=== PATIENT | male | born 1950 | race Caucasian/White ===

== ENCOUNTER 2018-02-11 04:10 | Inpatient (IN) | payer BC, MEDICARE ==
[2018-02-10 15:47] LABS: BASOPHILS # (AUTO) 0.03 x10^3/uL (0-0.1); BASOPHILS % (AUTO) 0 % (0-1); EOSINOPHILS # (AUTO) 0.05 x10^3/uL (0-0.4); EOSINOPHILS % (AUTO) 1 % (1-7); LYMPHOCYTES # (AUTO) 1.53 x10^3/uL (1-3.4); LYMPHOCYTES % (AUTO) 22 % (22-44); MD NO; MEAN CORPUSCULAR HGB CONC 34.2 g/dL (33.2-36.2); MEAN CORPUSCULAR VOLUME 96.6 fL (81-97); MEAN PLATELET VOLUME 8.5 fL (7.4-10.4); MONOCYTES # (AUTO) 0.47 x10^3/uL (0.2-0.8); MONOCYTES % (AUTO) 7 % (2-9); NEUTROPHILS # (AUTO) 4.93 x10^3/uL (1.8-6.8); NEUTROPHILS % (AUTO) 70 % (42-75); PLATELET COUNT 204 x10^3/uL (130-400); RED BLOOD COUNT 4.81 x10^6/uL (4.38-5.82); RED CELL DISTRIBUTION WIDTH 13.5 % (9.4-14.8)
[2018-02-10 15:55] LABS: ALBUMIN 3.8 g/dL (3.4-5.0); ANION GAP 8 mmol/L (5-15); CALCIUM 8.6 mg/dL (8.5-10.1); CHLORIDE 104 mmol/L (98-107)
[2018-02-10 15:59] LABS: ALANINE AMINOTRANSFERASE 34 U/L (12-78); ALKALINE PHOSPHATASE 76 U/L (45-117); BILIRUBIN,TOTAL 0.8 mg/dL (0.2-1.0); CREATININE 1.04 mg/dL (0.7-1.3); TOTAL PROTEIN 7.8 g/dL (6.4-8.2)
[2018-02-10 16:00] LABS: HEMOGLOBIN A1C 6.3 % (4.2-6.3)
[2018-02-10 16:06] LABS: INTERNATIONAL NORMALIZED RATIO 1.08 (0.93-1.1); PROTHROMBIN TIME 11.4 Seconds (9.6-11.5)
[2018-02-10 16:24] LABS: MICROSCOPIC AUTO
[2018-02-10 16:31] LABS: CULTURE INDICATED? YES
[~2018-02-11] VITALS: Ht 170.2 cm; Wt 85.1 kg
[~2018-02-11 04:10] MED LIST: ACET-711 PO; ASPI81TA45 PO; ATOR10TA9 PO; CYCL-259 PO; METO25TA35 PO; [UNRECOGNIZED DRUG - CODE] TP
[2018-02-11] MEDS ORDERED: METOPROLOL TARTRATE 25 MG TABLET PO ONE (05:00)
[2018-02-11] MEDS ORDERED: INSULIN LISPRO 100 UNITS/ML, PEN SQ-INSULIN SCH ×2 (05:00→16:00)
[2018-02-11] MEDS ORDERED: CHLORHEXIDINE 15 ML UDC MM SCH (05:00)
[2018-02-11] MEDS ORDERED: DO NOT GIVE MC SCH (05:00)
[2018-02-11] MEDS ORDERED: DO NOT GIVE XX SCH (05:00)
[2018-02-11] MEDS: MUPIROCIN OINT 2%, 22GM TP SCH ×2 (05:01→21:00)
[2018-02-11] MEDS: SODIUM CHLORIDE FLUSH 10ML SYR IVF SCH ×3 (05:02→21:24)
[2018-02-11] MEDS ORDERED: PAPAVERINE 30 MG/ML, 2ML ONE (07:03)
[2018-02-11] MEDS ORDERED: HEPARIN 1,000 UNITS/ML, 10ML ONE (07:03)
[2018-02-11] MEDS ORDERED: PHENYLEPHRINE 10 MG in SODIUM CHLORIDE 0.9% 249 ML IV PRN ×2 (07:30→11:46)
[2018-02-11] MEDS ORDERED: DEXMEDETOMIDINE 200 MCG in SODIUM CHLORIDE 0.9% 48 ML IV SCH (07:30)
[2018-02-11] MEDS ORDERED: EPINEPHRINE 2 MG in SODIUM CHLORIDE 0.9% 248 ML IV SCH (07:30)
[2018-02-11] MEDS ORDERED: ALBUMIN HUMAN 5% 500 ML IV PRN (07:30)
[2018-02-11] MEDS ORDERED: POTASSIUM CHLORIDE 80 MEQ, SODIUM BICARBONATE 8.4% 10 MEQ, MAGNESIUM SULFATE 0.5 GM, LI... IV PRN (07:30)
[2018-02-11] MEDS ORDERED: CEFUROXIME 1.5 GM in SODIUM CHLORIDE 0.9% 50 ML IVPB PRN (07:30)
[2018-02-11] MEDS ORDERED: REGULAR INSULIN 62.5 UNITS in SODIUM CHLORIDE 0.9% 249.375 ML IV PRN ×2 (07:30→11:46)
[2018-02-11] MEDS ORDERED: MANNITOL PMX 20% 500 ML IVPB PRN (07:30)
[2018-02-11] MEDS ORDERED: VANCOMYCIN 1,300 MG in SODIUM CHLORIDE 0.9% 250 ML IV PRN (07:30)
[2018-02-11] MEDS ORDERED: MIDAZOLAM 10MG/2 ML ONE (07:43)
[2018-02-11] MEDS ORDERED: FENTANYL PF 250 MCG/5ML ONE ×4 (07:43→07:44)
[2018-02-11] MEDS ORDERED: CALCIUM CHLORIDE 10%, 10ML SYR ONE (07:46)
[2018-02-11] MEDS ORDERED: PROPOFOL 10 MG/ML, 20ML ONE (07:47)
[2018-02-11] MEDS ORDERED: AMINOCAPROIC ACID 250 MG/ML, 20ML ONE (07:47)
[2018-02-11] MEDS ORDERED: ROCURONIUM 10MG/ML,5ML ONE ×2 (08:59)
[2018-02-11] MEDS ORDERED: PROTAMINE SULFATE 10 MG/ML, 25ML ONE ×2 (08:59)
[2018-02-11] MEDS: DOCUSATE 100 MG CAPSULE PO SCH ×2 (09:00→21:25)
[2018-02-11] MEDS ORDERED: KETAMINE 10 MG/ML, 20ML ONE (09:00)
[2018-02-11] MEDS ORDERED: niCARDipine 2.5 MG/ML, 10ML ONE (09:02)
[2018-02-11] MEDS ORDERED: LIDOCAINE 2% 100MG/5ML SYRINGE ONE ×2 (11:37→11:43)
[2018-02-11] MEDS ORDERED: methylPREDNISolone SOD SUCC 125 MG/2 ML ONE (11:37)
[2018-02-11] MEDS ORDERED: ALBUMIN HUMAN 25% 50 ML ONE (11:38)
[2018-02-11] MEDS ORDERED: HEPARIN 1,000 UNITS/ML, 30ML ONE (11:38)
[2018-02-11] MEDS ORDERED: VASOPRESSIN 50 UNIT in SODIUM CHLORIDE 0.9% 247.5 ML IV PRN (11:46)
[2018-02-11] MEDS ORDERED: DOBUTAMINE 250 MG in SODIUM CHLORIDE 0.9% 230 ML IV PRN (11:46)
[2018-02-11] MEDS ORDERED: SODIUM CHLORIDE 0.9% 1,000 ML IV PRN (11:46)
[2018-02-11] MEDS ORDERED: DEXMEDETOMIDINE 200 MCG in SODIUM CHLORIDE 0.9% 48 ML IV PRN (11:46)
[2018-02-11] MEDS ORDERED: NITROGLYCERIN/D5W PMX 250 ML IV PRN (11:46)
[2018-02-11] MEDS ORDERED: GLUCAGON 1 MG IM PRN (12:00)
[2018-02-11] MEDS ORDERED: ONDANSETRON 2MG/ML, 2ML IVPush PRN (12:00)
[2018-02-11] MEDS ORDERED: MIDAZOLAM 1 MG/ML, 5ML IVPush PRN (12:00)
[2018-02-11] MEDS ORDERED: SODIUM BICARB 8.4%, 50ML SYRINGE IV PRN (12:00)
[2018-02-11] MEDS ORDERED: LACTATED RINGERS 1,000 ML IV PRN (12:00)
[2018-02-11] MEDS ORDERED: DEXTROSE 4 GM TAB.CHEW PO PRN (12:00)
[2018-02-11] MEDS ORDERED: VANCOMYCIN 1,300 MG in SODIUM CHLORIDE 0.9% 250 ML IVPB SCH (12:00)
[2018-02-11] MEDS ORDERED: PROCHLORPERAZINE 5 MG/ML, 2ML IVPush PRN (12:00)
[2018-02-11] MEDS ORDERED: EPINEPHRINE 2 MG in SODIUM CHLORIDE 0.9% 248 ML IV PRN (12:00)
[2018-02-11] MEDS ORDERED: INSULIN REGULAR 100 UNITS/ML, 3ML VIAL IVPush PRN (12:00)
[2018-02-11] MEDS ORDERED: BISACODYL 10 MG SUPP PR PRN (12:00)
[2018-02-11] MEDS ORDERED: ACETAMINOPHEN 650 MG SUPP PR PRN (12:00)
[2018-02-11] MEDS ORDERED: BISACODYL 5 MG EC TABLET PO PRN (12:00)
[2018-02-11] MEDS ORDERED: DEXTROSE 50%, 50ML SYRINGE IVPush PRN (12:00)
[2018-02-11 12:12] LABS: GLUCOSE BY BLOOD GAS ANALYZER 166 mg/dL (70-110); HEMOGLOBIN BY BLOOD GAS ANALYZ 11.8 g/dL (14.0-18.0); POTASSIUM BY BLOOD GAS ANALYZR 3.5 mmol/L (3.6-5.5)
[2018-02-11] MEDS: MAGNESIUM SULFATE 1 GM in SODIUM CHLORIDE 0.9% 50 ML IVPB SCH (12:54)
[2018-02-11] MEDS: KSCALE TO 4.5 IV SCH ×2 (12:54→17:28)
[2018-02-11] MEDS ORDERED: POTASSIUM CHLORIDE PMX 100 ML IV ONE (13:00)
[2018-02-11] MEDS: morphine SULFATE 10 MG/ML, 1ML IVPush PRN ×2 (14:13→17:14)
[2018-02-11] MEDS: LIDODERM 5% PATCH TD SCH (17:14)
[2018-02-11] MEDS: OXYcodone IR 5MG TABLET PO PRN ×3 (17:25→21:30)
[2018-02-11] MEDS ORDERED: ALBUTEROL SULFATE 2.5 MG/3 ML NPPB PRN (18:30)
[2018-02-11] MEDS: MUPIROCIN OINT 2%, 22GM NAS SCH (21:24)
[2018-02-11] MEDS: CHLORHEXIDINE 15 ML UDC PO SCH (21:25)
[2018-02-11] MEDS: HYDROcodone/APAP 5/325 TABLET PO PRN (23:34)
[2018-02-12] MEDS ORDERED: FUROSEMIDE 20 MG/2 ML IV ONE (01:30)
[2018-02-12] MEDS ORDERED: AMIODARONE 150 MG in DEXTROSE 5% 100 ML IV ONE ×3 (01:30→23:00)
[2018-02-12] MEDS: AMIODARONE 900 MG in DEXTROSE 5% 482 ML IV PRN ×2 (01:57→16:53)
[2018-02-12] MEDS: OXYcodone IR 5MG TABLET PO PRN ×4 (02:35→22:49)
[2018-02-12 04:00] VITALS: BP 132/54
[2018-02-12] MEDS: HYDROcodone/APAP 5/325 TABLET PO PRN ×3 (05:11→15:18)
[2018-02-12 05:25] LABS: MEAN CORPUSCULAR HEMOGLOBIN 33.6 pg (27.5-34.5); MEAN CORPUSCULAR HGB CONC 34.7 g/dL (33.2-36.2); MEAN CORPUSCULAR VOLUME 96.8 fL (81-97); PLATELET COUNT 197 x10^3/uL (130-400); RED CELL DISTRIBUTION WIDTH 13.8 % (9.4-14.8)
[2018-02-12 05:28] LABS: INTERNATIONAL NORMALIZED RATIO 1.13 (0.93-1.1); PROTHROMBIN TIME 11.9 Seconds (9.6-11.5)
[2018-02-12 05:32] LABS: ANION GAP 9 mmol/L (5-15); CALCIUM 8.1 mg/dL (8.5-10.1); CHLORIDE 105 mmol/L (98-107); CREATININE 0.99 mg/dL (0.7-1.3)
[2018-02-12] MEDS: KSCALE TO 4.5 IV SCH ×2 (05:44)
[2018-02-12] MEDS: INSULIN LISPRO 100 UNITS/ML, PEN SQ-INSULIN SCH ×5 (06:00→20:00)
[2018-02-12 06:05] LABS: MD YES
[2018-02-12 06:11] LABS: <PLATELET ESTIMATE> ADEQUATE; <PLT MORPHOLOGY> NORMAL PLT MORPH; <RBC MORPHOLOGY> NORMAL; BAND#(MANUAL) 1.19 x10^3/uL; BANDS%(MANUAL) 6 % (0-7); LYMPHS% (MANUAL) 4 % (22-44); MONOS% (MANUAL) 4 % (2-9); SEG#(MANUAL) 17.11 x10^3/uL (1.8-6.8); SEGS% (MANUAL) 86 % (42-75)
[2018-02-12 06:12] LABS: TOXIC GRAN 2+
[2018-02-12] MEDS ORDERED: INSULIN LISPRO 100 UNITS/ML, PEN SQ-INSULIN SCH (08:00)
[2018-02-12] MEDS: SODIUM CHLORIDE FLUSH 10ML SYR IVF SCH ×4 (09:00→21:00)
[2018-02-12] MEDS: LISINOPRIL 5 MG TABLET PO SCH (09:14)
[2018-02-12] MEDS: DOCUSATE 100 MG CAPSULE PO SCH ×2 (09:14→20:55)
[2018-02-12] MEDS: METOPROLOL TARTRATE 25 MG TABLET PO/NG SCH ×2 (09:15→21:03)
[2018-02-12] MEDS: CHLORHEXIDINE 15 ML UDC PO SCH ×2 (09:15→20:55)
[2018-02-12] MEDS: ASPIRIN 81 MG TABLET EC PO SCH (09:15)
[2018-02-12] MEDS: MUPIROCIN OINT 2%, 22GM NAS SCH ×2 (09:17→20:55)
[2018-02-12] MEDS: MAGNESIUM SULFATE 1 GM in SODIUM CHLORIDE 0.9% 50 ML IVPB SCH (11:33)
[2018-02-12] MEDS: POTASSIUM CHLORIDE 10 MEQ TABLET.ER PO SCH (16:52)
[2018-02-12] MEDS: LIDODERM 5% PATCH TD SCH (16:53)
[2018-02-12] MEDS: FUROSEMIDE 20 MG/2 ML IV SCH (16:53)
[2018-02-12] MEDS: ACETAMINOPHEN 325 MG TABLET PO PRN (21:59)
[2018-02-12] MEDS ORDERED: AMLODIPINE 10 MG TAB PO ONE (22:00)
[2018-02-13] MEDS: INSULIN LISPRO 100 UNITS/ML, PEN SQ-INSULIN SCH ×6 (00:36→21:14)
[2018-02-13] MEDS: HYDROcodone/APAP 5/325 TABLET PO PRN ×4 (00:59→16:31)
[2018-02-13 05:04] LABS: MEAN CORPUSCULAR HEMOGLOBIN 32.9 pg (27.5-34.5); MEAN CORPUSCULAR VOLUME 96.6 fL (81-97); MEAN PLATELET VOLUME 9.1 fL (7.4-10.4); PLATELET COUNT 165 x10^3/uL (130-400); RED BLOOD COUNT 4.02 x10^6/uL (4.38-5.82); RED CELL DISTRIBUTION WIDTH 13.6 % (9.4-14.8)
[2018-02-13 05:10] LABS: INTERNATIONAL NORMALIZED RATIO 1.14 (0.93-1.1)
[2018-02-13 05:11] LABS: ANION GAP 7 mmol/L (5-15); CALCIUM 8.5 mg/dL (8.5-10.1); CHLORIDE 97 mmol/L (98-107); CREATININE 0.96 mg/dL (0.7-1.3)
[2018-02-13 05:30] VITALS: BP 151/75
[2018-02-13] MEDS ORDERED: METOPROLOL 1 MG/ML, 5ML IVPush ONE (05:30)
[2018-02-13 05:56] LABS: BASOPHILS # (AUTO) 0.08 x10^3/uL (0-0.1); BASOPHILS % (AUTO) 0 % (0-1); EOSINOPHILS # (AUTO) 0.01 x10^3/uL (0-0.4); EOSINOPHILS % (AUTO) 0 % (1-7); LYMPHOCYTES # (AUTO) 1.14 x10^3/uL (1-3.4); LYMPHOCYTES % (AUTO) 6 % (22-44); MD SCAN; MONOCYTES # (AUTO) 1.23 x10^3/uL (0.2-0.8); MONOCYTES % (AUTO) 6 % (2-9); NEUTROPHILS % (AUTO) 87 % (42-75)
[2018-02-13] MEDS ORDERED: MAGNESIUM SULFATE 1 GM in SODIUM CHLORIDE 0.9% 50 ML IV ONE (08:30)
[2018-02-13] MEDS ORDERED: AMIODARONE 150 MG in DEXTROSE 5% 100 ML IV ONE (08:30)
[2018-02-13] MEDS: SODIUM CHLORIDE FLUSH 10ML SYR IVF SCH ×4 (08:56→23:52)
[2018-02-13] MEDS: POTASSIUM CHLORIDE 10 MEQ TABLET.ER PO SCH ×2 (08:56→16:32)
[2018-02-13] MEDS: LISINOPRIL 5 MG TABLET PO SCH (08:56)
[2018-02-13] MEDS: DOCUSATE 100 MG CAPSULE PO SCH (08:56)
[2018-02-13] MEDS: CHLORHEXIDINE 15 ML UDC PO SCH (08:56)
[2018-02-13] MEDS: ACETAMINOPHEN 325 MG TABLET PO PRN (08:57)
[2018-02-13] MEDS: ASPIRIN 81 MG TABLET EC PO SCH (08:57)
[2018-02-13] MEDS: FUROSEMIDE 20 MG/2 ML IV SCH ×2 (08:57→16:31)
[2018-02-13] MEDS: METOPROLOL TARTRATE 25 MG TABLET PO/NG SCH ×2 (08:57→20:52)
[2018-02-13] MEDS: AMIODARONE 900 MG in DEXTROSE 5% 482 ML IV PRN (08:59)
[2018-02-13] MEDS ORDERED: ENOXAPARIN 40 MG/0.4 ML SQ SCH (09:00)
[2018-02-13] MEDS: MUPIROCIN OINT 2%, 22GM NAS SCH ×2 (09:00→23:45)
[2018-02-13] MEDS: AMIODARONE 200 MG TABLET PO SCH ×2 (09:02→20:52)
[2018-02-13] MEDS: MAGNESIUM SULFATE 1 GM in SODIUM CHLORIDE 0.9% 50 ML IVPB SCH (09:05)
[2018-02-13] MEDS ORDERED: HEPARIN 5,000 UNITS/ML, 1ML IV ONE (09:30)
[2018-02-13] MEDS ORDERED: HEPARIN 25,000 UNITS/500ML PMX 500 ML IV PRN (09:30)
[2018-02-13] MEDS: FILTER 0.22 MICRON IV PRN (09:45)
[2018-02-13] MEDS: OXYcodone IR 5MG TABLET PO PRN ×2 (10:11→20:51)
[2018-02-13] MEDS: CEFTRIAXONE PMX 2GM/50ML 50 ML IV SCH (15:33)
[2018-02-13] MEDS: LIDODERM 5% PATCH TD SCH (16:33)
[2018-02-13] MEDS: HEPARIN 5,000 UNITS/ML, 1ML IV PRN (18:49)
[2018-02-13] MEDS: DOCUSATE 50 MG/5 ML, 10ML UDC PO SCH (21:00)
[2018-02-13] MEDS ORDERED: MORPHINE SULFATE 4 MG/ML, 1ML IVPush PRN (23:30)
[2018-02-13] MEDS: MORPHINE SULFATE 4 MG/ML, 1ML IVPush PRN (23:49)
[2018-02-14 01:50] LABS: MEAN CORPUSCULAR HEMOGLOBIN 32.7 pg (27.5-34.5); MEAN CORPUSCULAR HGB CONC 34.1 g/dL (33.2-36.2); MEAN CORPUSCULAR VOLUME 95.7 fL (81-97); MEAN PLATELET VOLUME 9.6 fL (7.4-10.4); PLATELET COUNT 167 x10^3/uL (130-400); RED BLOOD COUNT 4.11 x10^6/uL (4.38-5.82); RED CELL DISTRIBUTION WIDTH 13.5 % (9.4-14.8)
[2018-02-14 01:57] LABS: ANION GAP 9 mmol/L (5-15); CALCIUM 8.3 mg/dL (8.5-10.1); CHLORIDE 96 mmol/L (98-107); CREATININE 0.94 mg/dL (0.7-1.3)
[2018-02-14 02:16] LABS: BASOPHILS % (AUTO) 0 % (0-1); EOSINOPHILS # (AUTO) 0.01 x10^3/uL (0-0.4); EOSINOPHILS % (AUTO) 0 % (1-7); LYMPHOCYTES % (AUTO) 10 % (22-44); MD SCAN; MONOCYTES # (AUTO) 0.16 x10^3/uL (0.2-0.8); MONOCYTES % (AUTO) 1 % (2-9); NEUTROPHILS # (AUTO) 15.37 x10^3/uL (1.8-6.8); NEUTROPHILS % (AUTO) 89 % (42-75)
[2018-02-14] MEDS: HEPARIN 5,000 UNITS/ML, 1ML IV PRN (02:31)
[2018-02-14] MEDS: MORPHINE SULFATE 4 MG/ML, 1ML IVPush PRN ×2 (03:03→05:14)
[2018-02-14 04:00] VITALS: BP 144/64
[2018-02-14] MEDS: INSULIN LISPRO 100 UNITS/ML, PEN SQ-INSULIN SCH ×6 (04:00→19:47)
[2018-02-14 07:23] VITALS: BP 144/64
[2018-02-14] MEDS: FUROSEMIDE 20 MG/2 ML IV SCH (07:30)
[2018-02-14] MEDS: POTASSIUM CHLORIDE 10 MEQ TABLET.ER PO SCH ×2 (08:53→17:40)
[2018-02-14] MEDS: ASPIRIN 81 MG TABLET EC PO SCH (08:54)
[2018-02-14] MEDS: DOCUSATE 50 MG/5 ML, 10ML UDC PO SCH ×2 (08:54→19:47)
[2018-02-14] MEDS: AMIODARONE 200 MG TABLET PO SCH ×2 (08:54→19:48)
[2018-02-14] MEDS: METOPROLOL TARTRATE 25 MG TABLET PO/NG SCH ×2 (08:54→19:48)
[2018-02-14] MEDS: LISINOPRIL 5 MG TABLET PO SCH (08:55)
[2018-02-14] MEDS: SODIUM CHLORIDE FLUSH 10ML SYR IVF SCH ×4 (08:55→19:48)
[2018-02-14] MEDS ORDERED: DOCUSATE 100 MG CAPSULE ONE (08:59)
[2018-02-14] MEDS ORDERED: FUROSEMIDE 40 MG/4 ML ONE (08:59)
[2018-02-14] MEDS ORDERED: CLOPIDOGREL 75 MG TABLET PO SCH (09:00)
[2018-02-14] MEDS: ACETAMINOPHEN 325 MG TABLET PO PRN (09:00)
[2018-02-14] MEDS: MUPIROCIN OINT 2%, 22GM NAS SCH ×2 (09:01→19:48)
[2018-02-14] MEDS: OXYcodone IR 5MG TABLET PO PRN ×3 (11:16→21:59)
[2018-02-14] MEDS ORDERED: LIDOCAINE-MPF 1%, 5ML ONE (14:15)
[2018-02-14] MEDS: CEFTRIAXONE PMX 2GM/50ML 50 ML IV SCH (14:50)
[2018-02-14] MEDS: FILTER 0.22 MICRON IV PRN (15:43)
[2018-02-14] MEDS: AMIODARONE 900 MG in DEXTROSE 5% 482 ML IV PRN (15:58)
[2018-02-14] MEDS: HYDROcodone/APAP 5/325 TABLET PO PRN (16:03)
[2018-02-14] MEDS: RIVAROXABAN 20 MG TABLET PO SCH (17:40)
[2018-02-14] MEDS: FUROSEMIDE 40 MG/4 ML IV SCH (17:40)
[2018-02-14] MEDS: LIDODERM 5% PATCH TD SCH (17:41)
[2018-02-15] MEDS: INSULIN LISPRO 100 UNITS/ML, PEN SQ-INSULIN SCH ×3 (00:23→08:00)
[2018-02-15] MEDS: AMIODARONE 900 MG in DEXTROSE 5% 482 ML IV PRN ×2 (04:44→23:06)
[2018-02-15 04:51] VITALS: BP 102/52
[2018-02-15 05:07] LABS: ANION GAP 8 mmol/L (5-15); CALCIUM 8.4 mg/dL (8.5-10.1); CHLORIDE 97 mmol/L (98-107)
[2018-02-15 05:22] LABS: MEAN CORPUSCULAR HEMOGLOBIN 33.1 pg (27.5-34.5); MEAN CORPUSCULAR HGB CONC 34.2 g/dL (33.2-36.2); MEAN CORPUSCULAR VOLUME 96.7 fL (81-97); MEAN PLATELET VOLUME 9.7 fL (7.4-10.4); PLATELET COUNT 194 x10^3/uL (130-400); RED BLOOD COUNT 4.02 x10^6/uL (4.38-5.82); RED CELL DISTRIBUTION WIDTH 13.4 % (9.4-14.8)
[2018-02-15 05:41] LABS: BASOPHILS % (AUTO) 0 % (0-1); EOSINOPHILS # (AUTO) 0.05 x10^3/uL (0-0.4); EOSINOPHILS % (AUTO) 0 % (1-7); LYMPHOCYTES # (AUTO) 1.62 x10^3/uL (1-3.4); LYMPHOCYTES % (AUTO) 13 % (22-44); MD SCAN; MONOCYTES # (AUTO) 0.37 x10^3/uL (0.2-0.8); MONOCYTES % (AUTO) 3 % (2-9); NEUTROPHILS # (AUTO) 10.97 x10^3/uL (1.8-6.8); NEUTROPHILS % (AUTO) 84 % (42-75)
[2018-02-15] MEDS: AMIODARONE 200 MG TABLET PO SCH ×2 (08:10→20:28)
[2018-02-15] MEDS: POTASSIUM CHLORIDE 10 MEQ TABLET.ER PO SCH ×2 (08:11→17:45)
[2018-02-15] MEDS: FUROSEMIDE 40 MG/4 ML IV SCH ×2 (08:11→17:46)
[2018-02-15] MEDS: METOPROLOL TARTRATE 25 MG TABLET PO/NG SCH ×2 (08:11→20:27)
[2018-02-15] MEDS: ASPIRIN 81 MG TABLET EC PO SCH (08:11)
[2018-02-15] MEDS: LISINOPRIL 5 MG TABLET PO SCH (08:11)
[2018-02-15] MEDS: DOCUSATE 50 MG/5 ML, 10ML UDC PO SCH ×2 (08:11→20:28)
[2018-02-15] MEDS: SODIUM CHLORIDE FLUSH 10ML SYR IVF SCH ×5 (08:12→20:29)
[2018-02-15] MEDS: MUPIROCIN OINT 2%, 22GM NAS SCH ×2 (08:12→20:27)
[2018-02-15] MEDS: GUAIFENESIN 200 MG TABLET PO SCH ×3 (11:43→20:27)
[2018-02-15 12:24] VITALS: BP 107/63
[2018-02-15] MEDS: CEFTRIAXONE PMX 2GM/50ML 50 ML IV SCH (15:41)
[2018-02-15] MEDS: OXYcodone IR 5MG TABLET PO PRN (15:41)
[2018-02-15] MEDS: RIVAROXABAN 20 MG TABLET PO SCH (17:45)
[2018-02-15] MEDS: LIDODERM 5% PATCH TD SCH (18:08)
[2018-02-15] MEDS: MAGNESIUM HYDROXIDE 8%, 30ML UDC PO PRN (18:08)
[2018-02-15 20:24] VITALS: BP 98/56
[2018-02-15 22:14] VITALS: BP_SYST 109; BP_SYST 90; BP_DIAS 68; BP_DIAS 74
[2018-02-15] MEDS ORDERED: AMIODARONE 150 MG in DEXTROSE 5% 100 ML IV ONE (22:30)
[2018-02-15] MEDS: FILTER 0.22 MICRON IV PRN (23:06)
[2018-02-16 03:40] VITALS: BP 123/73
[2018-02-16 05:52] LABS: BASOPHILS # (AUTO) 0.02 x10^3/uL (0-0.1); BASOPHILS % (AUTO) 0 % (0-1); EOSINOPHILS # (AUTO) 0.02 x10^3/uL (0-0.4); EOSINOPHILS % (AUTO) 0 % (1-7); LYMPHOCYTES % (AUTO) 11 % (22-44); MD NO; MEAN CORPUSCULAR HEMOGLOBIN 33.3 pg (27.5-34.5); MEAN CORPUSCULAR HGB CONC 34.3 g/dL (33.2-36.2); MEAN CORPUSCULAR VOLUME 97.2 fL (81-97); MEAN PLATELET VOLUME 9.3 fL (7.4-10.4); MONOCYTES # (AUTO) 0.62 x10^3/uL (0.2-0.8); MONOCYTES % (AUTO) 6 % (2-9); NEUTROPHILS # (AUTO) 8.37 x10^3/uL (1.8-6.8); NEUTROPHILS % (AUTO) 83 % (42-75); PLATELET COUNT 191 x10^3/uL (130-400); RED BLOOD COUNT 4.11 x10^6/uL (4.38-5.82); RED CELL DISTRIBUTION WIDTH 13.6 % (9.4-14.8)
[2018-02-16 05:53] LABS: ANION GAP 10 mmol/L (5-15); CALCIUM 8.7 mg/dL (8.5-10.1); CHLORIDE 95 mmol/L (98-107); CREATININE 1.26 mg/dL (0.7-1.3)
[2018-02-16 07:45] VITALS: BP 128/81
[2018-02-16] MEDS: ASPIRIN 81 MG TABLET EC PO SCH (08:48)
[2018-02-16] MEDS: DOCUSATE 50 MG/5 ML, 10ML UDC PO SCH ×2 (08:48→21:13)
[2018-02-16] MEDS: METOPROLOL TARTRATE 25 MG TABLET PO/NG SCH ×2 (08:49→21:12)
[2018-02-16] MEDS: LISINOPRIL 5 MG TABLET PO SCH (08:49)
[2018-02-16] MEDS: GUAIFENESIN 200 MG TABLET PO SCH ×4 (08:49→21:13)
[2018-02-16] MEDS: SODIUM CHLORIDE FLUSH 10ML SYR IVF SCH ×6 (09:00→21:14)
[2018-02-16] MEDS: MUPIROCIN OINT 2%, 22GM NAS SCH (09:00)
[2018-02-16] MEDS: AMIODARONE 200 MG TABLET PO SCH ×2 (09:06→21:12)
[2018-02-16 13:50] VITALS: BP 118/75
[2018-02-16] MEDS: CEFTRIAXONE PMX 2GM/50ML 50 ML IV SCH (16:11)
[2018-02-16] MEDS: RIVAROXABAN 20 MG TABLET PO SCH (17:46)
[2018-02-16] MEDS: LIDODERM 5% PATCH TD SCH (17:47)
[2018-02-16] MEDS: MAGNESIUM HYDROXIDE 8%, 30ML UDC PO PRN (17:47)
[2018-02-16 19:06] VITALS: BP 136/71
[2018-02-16] MEDS: ATORVASTATIN 40 MG TABLET PO SCH (21:12)
[2018-02-17 00:46] VITALS: BP 154/65
[2018-02-17] MEDS: FILTER 0.22 MICRON IV PRN (01:37)
[2018-02-17] MEDS: AMIODARONE 900 MG in DEXTROSE 5% 482 ML IV PRN (01:38)
[2018-02-17 05:27] LABS: ANION GAP 9 mmol/L (5-15); CALCIUM 8.6 mg/dL (8.5-10.1); CHLORIDE 97 mmol/L (98-107); CREATININE 1.18 mg/dL (0.7-1.3)
[2018-02-17 08:19] VITALS: BP 143/79
[2018-02-17] MEDS: GUAIFENESIN 200 MG TABLET PO SCH ×4 (08:48→20:39)
[2018-02-17] MEDS: DOCUSATE 50 MG/5 ML, 10ML UDC PO SCH ×2 (08:48→20:39)
[2018-02-17] MEDS: AMIODARONE 200 MG TABLET PO SCH ×2 (08:49→20:40)
[2018-02-17] MEDS: METOPROLOL TARTRATE 25 MG TABLET PO/NG SCH ×2 (08:49→20:39)
[2018-02-17] MEDS: LISINOPRIL 5 MG TABLET PO SCH (08:50)
[2018-02-17] MEDS: ASPIRIN 81 MG TABLET EC PO SCH (08:50)
[2018-02-17] MEDS: OXYcodone IR 5MG TABLET PO PRN (08:57)
[2018-02-17] MEDS: SODIUM CHLORIDE FLUSH 10ML SYR IVF SCH ×6 (09:00→20:41)
[2018-02-17] MEDS: CEFTRIAXONE PMX 2GM/50ML 50 ML IV SCH (15:01)
[2018-02-17 15:33] VITALS: BP 112/67
[2018-02-17] MEDS: RIVAROXABAN 20 MG TABLET PO SCH (17:46)
[2018-02-17 19:32] VITALS: BP 130/71
[2018-02-17] MEDS: ATORVASTATIN 40 MG TABLET PO SCH (20:39)
[2018-02-17] MEDS: LIDODERM 5% PATCH TD SCH (20:39)
[2018-02-18 00:53] VITALS: BP 130/76
[2018-02-18 05:54] LABS: ANION GAP 7 mmol/L (5-15); CALCIUM 8.6 mg/dL (8.5-10.1); CHLORIDE 101 mmol/L (98-107); CREATININE 1.01 mg/dL (0.7-1.3)
[2018-02-18] MEDS: GUAIFENESIN 200 MG TABLET PO SCH ×3 (06:08→16:46)
[2018-02-18 07:17] VITALS: BP 162/82
[2018-02-18] MEDS ORDERED: POTASSIUM CHLORIDE 10 MEQ TABLET.ER PO SCH (08:00)
[2018-02-18] MEDS: SODIUM CHLORIDE FLUSH 10ML SYR IVF SCH ×3 (08:09→10:15)
[2018-02-18] MEDS ORDERED: DOCU-131 PO (08:20)
[2018-02-18] MEDS ORDERED: FURO20TA3 PO (08:20)
[2018-02-18] MEDS ORDERED: RIVA20TA PO (08:20)
[2018-02-18] MEDS ORDERED: POTA10TA5 PO (08:20)
[2018-02-18] MEDS ORDERED: MORP15TA3 PO (08:20)
[2018-02-18] MEDS ORDERED: LISI-167 PO (08:20)
[2018-02-18] MEDS ORDERED: AMOX1TAB64 PO (08:20)
[2018-02-18] MEDS ORDERED: GUAI200T3 PO (08:20)
[2018-02-18] MEDS ORDERED: METO25TA35 PO/NG (08:20)
[2018-02-18] MEDS ORDERED: OXYC5TAB3 PO (08:20)
[2018-02-18] MEDS ORDERED: ATOR40TA78 PO (08:20)
[2018-02-18] MEDS ORDERED: AMIO200T42 PO (08:20)
[2018-02-18] MEDS ORDERED: FUROSEMIDE 20 MG TABLET PO SCH (09:00)
[2018-02-18] MEDS ORDERED: LISINOPRIL 10 MG TABLET PO SCH (09:00)
[2018-02-18] MEDS: DOCUSATE 50 MG/5 ML, 10ML UDC PO SCH (10:13)
[2018-02-18] MEDS: METOPROLOL TARTRATE 25 MG TABLET PO/NG SCH (10:14)
[2018-02-18] MEDS: ASPIRIN 81 MG TABLET EC PO SCH (10:14)
[2018-02-18] MEDS: MAGNESIUM HYDROXIDE 8%, 30ML UDC PO PRN (10:28)
[2018-02-18 13:04] VITALS: BP 136/71
[2018-02-18] MEDS: LIDODERM 5% PATCH TD SCH (17:10)
[2018-02-18] MEDS: RIVAROXABAN 20 MG TABLET PO SCH (17:32)
[2018-02-18] MEDS ORDERED: AMIODARONE 200 MG TABLET PO SCH (21:00)
== END 2018-02-18 17:40 | disposition home health service (06) | DRG 235 ==
LOC: 5SO 04:10 → CCU 08:09 → 5SO 02-15 12:09
PROVIDERS: ADMIT Thoracic Surgery (Cardiothoracic Vascular Surgery); ATTEND Thoracic Surgery (Cardiothoracic Vascular Surgery)
PROC: 02100Z9 Bypass Coronary Artery, One Artery from Left Internal Mammary, Open Approach (ICD-10-PCS; 2018-02-11)
PROC: 06BP4ZZ Excision of Right Saphenous Vein, Percutaneous Endoscopic Approach (ICD-10-PCS; 2018-02-11)
PROC: 5A1221Z Performance of Cardiac Output, Continuous (ICD-10-PCS; 2018-02-11)
PROC: 30233L1 Transfusion of Nonautologous Fresh Plasma into Peripheral Vein, Percutaneous Approach (ICD-10-PCS; 2018-02-11)
PROC: 30233R1 Transfusion of Nonautologous Platelets into Peripheral Vein, Percutaneous Approach (ICD-10-PCS; 2018-02-11)
PROC: 30233M1 Transfusion of Nonautologous Plasma Cryoprecipitate into Peripheral Vein, Percutaneous Approach (ICD-10-PCS; 2018-02-11)
PROC: 30233K1 Transfusion of Nonautologous Frozen Plasma into Peripheral Vein, Percutaneous Approach (ICD-10-PCS; 2018-02-11)
PROC: B24BZZ4 Ultrasonography of Heart with Aorta, Transesophageal (ICD-10-PCS; 2018-02-11)
PROC: 5A1935Z Respiratory Ventilation, Less than 24 Consecutive Hours (ICD-10-PCS; 2018-02-11)
PROC: 0BH17EZ Insertion of Endotracheal Airway into Trachea, Via Natural or Artificial Opening (ICD-10-PCS; 2018-02-11)
PROC: 021109W Bypass Coronary Artery, Two Arteries from Aorta with Autologous Venous Tissue, Open Approach (ICD-10-PCS; principal; 2018-02-11 08:00)
PROC: 02HV33Z Insertion of Infusion Device into Superior Vena Cava, Percutaneous Approach (ICD-10-PCS; 2018-02-13)
PROC: 0W9B3ZZ Drainage of Left Pleural Cavity, Percutaneous Approach (ICD-10-PCS; 2018-02-14)
DX: I25.119 Atherosclerotic heart disease of native coronary artery with unspecified angina pectoris (principal); I50.31 Acute diastolic (congestive) heart failure; N39.0 Urinary tract infection, site not specified; D68.69 Other thrombophilia; J98.11 Atelectasis; I69.351 Hemiplegia and hemiparesis following cerebral infarction affecting right dominant side; I13.0 Hypertensive heart and chronic kidney disease with heart failure and stage 1 through stage 4 chronic kidney disease, or unspecified chronic kidney disease; R09.02 Hypoxemia; M54.9 Dorsalgia, unspecified; E78.5 Hyperlipidemia, unspecified; G89.4 Chronic pain syndrome; N18.9 Chronic kidney disease, unspecified; I35.1 Nonrheumatic aortic (valve) insufficiency; J44.9 Chronic obstructive pulmonary disease, unspecified; I48.0 Paroxysmal atrial fibrillation; T40.605A Adverse effect of unspecified narcotics, initial encounter; Y92.89 Other specified places as the place of occurrence of the external cause; Z87.891 Personal history of nicotine dependence
CPT/HCPCS: 32555; 36415; 36600; 71045; 71046; 80048; 80053; 81001; 82040; 82330; 82800; 82803; 82810; 82947; 82962; 83036; 83735; 84132; 84295; 85014; 85018; 85025; 85049; 85347; 85520; 85610; 85730; 86850; 86900; 86923; 87081; 87086; 93005; 93312; 93320; 93325; 93880; 93970; 94002; 94150; G0378; J0696; J0697; J1644; J1650; J1815; J1940; J2250; J2704; J2720; J3010; J3370; J3475; J3480; J3490; P9045; P9047; C1751; C1760; J0171; J0282; J2270; J2370; J2440; J2930; J7050; J7060; P9012; P9017; P9035